=== PATIENT | male | born 1955 | race Caucasian/White ===

== ENCOUNTER 2016-07-10 12:35 | Emergency (ER) | payer OTHER ==
[2016-07-10 12:48] VITALS: BP 118/81; PULSE 74; RESP 16; TEMP 98.4; O2SAT 95
[2016-07-10] MEDS ORDERED: KETOROLAC 30 MG/1 ML SDV IM ONE (13:50)
--- NOTE | 2016-07-10 13:53 | UCPHY ---
H & P Time Seen by Provider: 07/10/16 12:52 Patient Type: Established HPI/ROS: 59-year-old male presents complaining of chronic lower back pain that is worse today he is scheduled to see [facility] for an MRI in approximately 1 week. He denies loss of bowel or bladder control he denies numbness or tingling in his extremities Review of systems General no fever no chills no weakness HEENT no eye pain no eye discharge. No eye redness, no sore throat Respiratory no cough, no shortness of breath Cardiac no chest pain, no peripheral edema GI no abdominal pain, no diarrhea, no constipation, no nausea, no vomiting no flank pain, no hematuria, no dysuria Musculoskeletal no myalgias, no joint pain, positive back pain Heme no easy bruising, no easy bleeding Endo no polyuria, no polydipsia Skin no rashes, no pruritus Neuro no syncope, no dizziness, no headaches Psych is no suicidal ideation, no homicidal ideation Past Medical/Surgical History: Chronic lumbar back pain Social History: Denies excessive alcohol or drug use Smoking Status: Never smoked Physical Exam: 61-year-old male alert and oriented no acute distress nontoxic appearance gait intact Alert and oriented in no acute distress nontoxic appearance, afebrile Atraumatic normocephalic Neck no JVD Lungs clear to auscultation, no respiratory distress Heart regular rate and rhythm Back-lumbar tenderness, paralumbar tenderness no swelling no ecchymosis no rash No step-offs, no CVA tenderness Negative straight leg raise Gait intact Extremities no cyanosis clubbing edema Constitutional: Initial Vital Signs Temperature (C) 36.9 C 07/10/16 12:45 Heart Rate 74 07/10/16 12:45 Respiratory Rate 16 07/10/16 12:45 Blood Pressure 118/81 H 07/10/16 12:45 O2 Sat (%) 95 07/10/16 12:45 O2 Delivery Mode Room Air Allergies/Adverse Reactions: No Known Allergies Allergy (Unverified 07/10/16 12:45) Home Medications: Medication Instructions Recorded Hydrocodone/Acetaminophen [[place] 1 tab PO Q6H PRN #12 tab 07/10/16 5/325 (*)] methylPREDNISolone [Medrol Dose 1 each PO AD #1 ea 07/10/16 Miguel] Medical Decision Making ED Course/Re-evaluation: Patient seen and evaluated for chronic lumbar back pain worse today so acute on chronic exacerbation Patient scheduled to have outpatient MRI and [facility] follow-up in approximately 1 week Impression Acute on chronic lumbar back pain Plan Short-term pain medication Keep follow-up as planned - Data Points Medications Given: Discontinued Medications Ketorolac Tromethamine (Toradol) 60 mg IM EDNOW ONE Stop: 07/10/16 13:51 Last Admin: 07/10/16 14:00 Dose: 60 mg Departure - Departure Disposition: Home, Routine, Self-Care Clinical Impression: Lumbar back pain Condition: Good Instructions: Hydrocodone/Acetaminophen (By mouth), Acute Low Back Pain (ED) Referrals: [facility] DO [Primary Care Provider] - As per Instructions Prescriptions: Hydrocodone/Acetaminophen [[place] 5/325 (*)] 1 tab PO Q6H PRN #12 tab PRN Reason: Pain, Moderate methylPREDNISolone [Medrol Dose Miguel] 1 each PO AD #1 ea - PQRS PQRS Measurement: na
== END 2016-07-10 14:07 | disposition home or self-care (01) ==
LOC: CED 12:35
DX: M54.5 Low back pain (principal)
CPT/HCPCS: 96372-PO; 99214-PO; G0463-PO; J1885